=== PATIENT | male | born 1985 | race Caucasian/White ===

== ENCOUNTER 2017-02-25 13:16 | Emergency (ER) | payer BC ==
--- NOTE | 2017-02-25 13:38 | ED.PDOC ---
History of Present Illness - General Chief Complaint: Problem Stated Complaint: blood in urine Time Seen by Provider: 02/25/17 13:38 Source: patient Exam Limitations: no limitations - History of Present Illness Initial Comments: Gilbert Turner 31 y/o male stated that he went to work this morning and noted dark colored urine which he thinks blood in his urine.Denies flank pain or pain on urination. Timing/Duration: this morning Quality: mild - denies pain Onset Location: other - today Radiation: none Activites at Onset: none Prior abdominal problems: none Sexual intercourse history: single partner, other - daily Improving Factors: rest - not urinating Worsening Factors: nothing Associated Symptoms: denies symptoms Allergies/Adverse Reactions: Allergies NO KNOWN ALLERGY Allergy (Verified 02/25/17 13:29) Home Medications: Ambulatory Orders Cetirizine HCl [Zyrtec] 1 each PO DAILY 02/25/17 Naproxen Sodium [Aleve] 220 mg PO DAILY 02/25/17 Review of Systems - Review of Systems Constitutional: States: no symptoms reported Respiratory: States: no symptoms reported Cardiology: States: no symptoms reported Gastrointestinal/Abdominal: States: no symptoms reported Genitourinary: States: see HPI Musculoskeletal: States: back pain - last week Skin: States: no symptoms reported Neurological: States: no symptoms reported Past Medical History (General) - Patient Medical History Hx Asthma: No Hx Renal Disease: Yes - nephrolithiasis Surgical History: no surgical history - Vaccination History Hx Tetanus, Diphtheria Vaccination: No Hx Influenza Vaccination: No Hx Pneumococcal Vaccination: No - Social History Hx Tobacco Use: No Hx Alcohol Use: No Hx Substance Use: No Hx Substance Use Treatment: No Hx Depression: No - Activities of Daily Living Patient Lives Alone: No - family Hospice Agency (if applicable):: None - Female History Patient is a Female of Child Bearing Age (10 -59 yrs old): No Patient : No Family Medical History - Family History Father Living Status: Age at (years of age): 50 Cause of : cancer Hx Family Diabetes: Yes - mom Hx Family Cancer: Yes - stomach-dad Physical Exam - Physical Exam General Appearance: Alert, No apparent distress Eyes, Ears, Nose, Throat Exam: PERRL/EOMI, normal ENT inspection, pharynx normal Neck: non-tender, full range of motion, supple Cardiovascular/Respiratory: regular rate, rhythm, no M/R/G, normal peripheral pulses, normal breath sounds Gastrointestinal/Abdominal: normal bowel sounds, non tender, soft, no organomegaly Male Genital Exam: normal genitalia Back Exam: normal inspection, no CVA tenderness Extremity: normal range of motion, non-tender, normal inspection Neurologic: no motor/sensory deficits, alert, normal mood/affect, oriented x 3 Skin Exam: normal color, warm/dry Lymphatic: no adenopathy Progress - Progress Progress: 02/25/17 16:00 Vital Signs - 8 hr 02/25/17 02/25/17 13:25 15:34 Temperature 99.0 F 98.3 F Pulse Rate [ 73 71 pulse ox] Respiratory 20 16 Rate Blood Pressure 140/87 121/79 [Right Arm] O2 Sat by Pulse 98 98 Oximetry Laboratory Tests 02/25/17 02/25/17 02/25/17 13:50 13:50 13:53 WBC 4.4 L RBC 4.79 Hgb 14.6 Hct 43.1 MCV 90.0 MCH 30.6 MCHC 34.0 RDW 13.2 Plt Count 164 MPV 8.7 Absolute Neuts (auto) 2.10 Absolute Lymphs (auto) 1.70 Absolute Monos (auto) 0.40 Absolute Eos (auto) 0.20 Absolute Basos (auto) 0.00 Neutrophils % 47.8 Lymphocytes % 38.3 Monocytes % 9.2 H Eosinophils % 4.0 Basophils % 0.7 Sodium 140 Potassium 3.8 Chloride 105 Carbon Dioxide 28 Anion Gap 10.8 L BUN 12 Creatinine 0.91 BUN/Creatinine Ratio 13.2 Random Glucose 112 H Serum Osmolality 279.9 Calcium 8.9 Urine Color Red Urine Appearance Cloudy Urine pH 7.0 Ur Specific [place] 1.025 Urine Protein 100 H Urine Glucose (UA) Negative Urine Ketones Trace Urine Blood Moderate H Urine Nitrite Negative Urine Bilirubin Small H Urine Urobilinogen 1.0 Ur Leukocyte Esterase Negative Urine RBC Tntc H Urine WBC 0 Ur Epithelial Cells 0 Urine Bacteria 0 - EKG/XRAY/CT CT Ordered: Yes - left renal pelvis 6.7 mm stone Departure - Departure Clinical Impression: Hematuria, gross, Left nephrolithiasis Time of Disposition: 16:02 Disposition: Discharge to Home or Self Care Departure Forms: ED Discharge - Pt. Copy, Patient Portal Self Enrollment Instructions: DI for Kidney Stones, Kidney Stones -- Adult Diet: other - Need to drink extra fluids Home Medications: Ambulatory Orders Cetirizine HCl [Zyrtec] 1 each PO DAILY 02/25/17 Naproxen Sodium [Aleve] 220 mg PO DAILY 02/25/17 Additional Instructions: Need to sign up with primary md for referral to urologist call for appointment;
--- NOTE | 2017-02-25 15:29 | CT ---
EXAM DESCRIPTION: Abdoment/Pelvis w/o Contrast CLINICAL HISTORY: 31 years Male, hematuria COMPARISON: 25 February 2014 TECHNIQUE: Transaxial images were obtained without intravenous or oral contrast media. Sagittal and coronal reconstruction was performed.This exam was performed according to our departmental dose-optimization program, which includes automated exposure control, adjustment of the mA and/or kV according to patient size and/or use of iterative reconstruction technique. FINDINGS: The lung bases are clear. The liver and spleen are normal in appearance. A calcified gallstone is observed in the gallbladder. No biliary ductal dilatation is observed. No adrenal masses are detected. The pancreas is normal in appearance. No free fluid is observed. Imaging of the kidneys reveals no evidence of hydronephrosis mass or cyst. The exam does reveal a 6.7 mm diameter calculus in the region of the left renal pelvis. No stones are seen along the course of the distal ureters. The inguinal regions are normal. No bone abnormality is detected. IMPRESSION: A 6.7 mm diameter calculus is seen in the region of the left renal pelvis. Electronically signed by: Danis Lang MD 02/25/2017 3:28 PM CDT
[2017-02-25 15:35] VITALS: TEMP 98.3
[2017-02-25 16:33] VITALS: BP 128/89; O2SAT 99
== END 2017-02-25 16:33 | disposition home or self-care (01) ==
LOC: ER 13:16
DX: N20.0 Calculus of kidney (principal); Z87.442 Personal history of urinary calculi